=== PATIENT | male | born 1960 | race Caucasian/White ===

== ENCOUNTER 2019-11-14 12:28 | Emergency (ER) | payer SELFPAY ==
[2019-11-14 12:40] VITALS: BP 168/90; PULSE 104; RESP 16; TEMP 36.9; O2SAT 98; BMI 25.1
--- NOTE | 2019-11-14 12:55 | ED_ITS ---
HPI - Male Genitourinary General: Chief complaint: Urogenital-Male Stated complaint: genitle problems? Time Seen by Provider: 11/14/19 12:54 History of Present Illness: HPI Narrative: 59-year-old male presented to the emergency room at the direction of the local urgent care clinic. He does not have a primary care doctor he like to get seen and treated for erectile dysfunction he is mostly seeking a referral to urology. He denies any other injury or illness recently. Associated symptoms: Deny dysuria, nausea or vomiting Review of Systems Const: Denies: fever(s), chills, body aches, change in appetite, fatigue or malaise ENMT: Denies: throat pain, ear or mastoid pain, nasal discharge or nasal congestion Card: Denies: chest pain, edema, dyspnea on exertion or orthopnea Resp: Denies: dyspnea, productive cough or non-productive cough GI: Denies: abdominal pain, nausea, vomiting, hematemesis, coffee ground emesis, diarrhea, constipation, bloating, hematochezia or melena : Denies: flank pain, dysuria, urinary frequency or urinary urgency Skin/Breast: Denies: rash or pruritus Physical Exam Const: COMMON NORMALS: no acute distress GENERAL APPEARANCE: cooperative and comfortable ORIENTATION/CONSCIOUSNESS: Yes awake, Yes oriented to person, Yes oriented to place and Yes oriented to time Eye: COMMON NORMALS: Equal, round and reactive pupils present, EOMs intact bilaterally, conjunctivae normal and no scleral icterus CONJUNCTIVA: Yes conjunctivae normal PUPIL: Yes Equal, round and reactive pupils present Neck/C-Spine: COMMON NORMALS: no JVD Resp: COMMON NORMALS: normal respiratory effort, No retractions, No use of accessory muscles and clear to auscultation bilaterally AUSCULTATION: clear to auscultation bilaterally Cardio: COMMON NORMALS: no JVD, regular rate, regular rhythm and No murmurs present (Cardio) RATE: regular rate RHYTHM: regular rhythm Extremity: COMMON NORMALS: normal to inspection, capillary refill normal, no clubbing, cyanosis or edema, no calf tenderness and no pedal edema Neuro: SENSORIUM/ORIENTATION: Yes oriented to person, Yes oriented to place and Yes oriented to time Skin: COMMON NORMALS: no rashes or lesions noted GENERAL SKIN EXAM: no rashes or lesions noted Course Vital Signs: Vital signs: Vital Signs Temperature 98.4 F 11/14/19 12:40 Pulse Rate 104 H 11/14/19 12:40 Respiratory Rate 16 11/14/19 12:40 Blood Pressure 168/90 11/14/19 12:40 Pulse Oximetry 98 11/14/19 12:40 MDM - Male MDM Narrative: Medical decision making narrative: Referral made to case management for assistance in setting up the patient with a PCP and referral to urology. Advised patient to return at any time sooner if he has any problems or worsening of any particular condition. Discharge Plan Discharge Patient Disposition: Home, Self-Care Clinical Impression: Erectile dysfunction Condition: Stable Discharge Orders: Discharge Order (Routine); Ordered 11/14/19 Ordered By: Tyrell Powell Discharge Diet: Advance as tolerated Discharge Activity: Resume usual activity Activity Restrictions/Additional Instructions: Case management will call to make arrangements for you to be seen by urology and primary care doctor. Discharge Date/Time: 11/14/19 13:05 Coding Level of Care Code ED Liturgical Music Director for Edward Berkowitz
--- NOTE | 2019-11-15 09:58 | DCPLANNER ---
ultrasound manager had message to schedule a follow up appointment for patient with Dr. Tee. ultrasound manager called the office of Dr. Tee, spoke with Alyssa, gave clinic patients information. ultrasound manager was told that patients information would be printed and reviewed. Clinic will call patient with appointment information.
--- NOTE | 2019-11-15 11:45 | DCPLANNER ---
air operations manager had message to speak with patient about getting a established with a primary care physician. air operations manager called patient at phone number [phone] and was unable to speak with patient or leave a voicemail for patient.
--- NOTE | 2019-11-19 14:45 | DCPLANNER ---
Patient has a follow up appointment scheduled for Tuesday, January 10, 2020 at 11:[address] Tee. Clinic will call patient with appointment information.
--- NOTE | 2020-02-01 14:48 | DCPLANNER ---
Patient had a follow up appointment scheduled for 01.10.[address] Tee -patient did not attend the appointment.
== END 2019-11-14 13:05 | disposition home or self-care (01) ==
LOC: ER 13:20
PROVIDERS: Emergency Provider Emergency Medicine
DX: N52.9 Male erectile dysfunction, unspecified (principal)
CPT/HCPCS: 12345; 99281

== ENCOUNTER 2021-01-01 08:00 | Emergency (ER) | payer SELFPAY ==
[2021-01-01 08:14] VITALS: BP 162/86; PULSE 89; RESP 22; TEMP 36.1; O2SAT 99; BMI 25.1
--- NOTE | 2021-01-01 10:06 | XRR_ITS ---
PROCEDURE INFORMATION: Exam: XR Chest Exam date and time: 01/01/2021 10:06 AM Age: 60 years old Clinical indication: Cough and shortness of breath; Patient HX: SOB, cough x 1 week; Additional info: Evaluate for pna TECHNIQUE: Imaging protocol: XR of the chest. Views: 1 view. COMPARISON: CT Abdomen/Pelvis Renal [id number] 10/24/2016 1:36 PM FINDINGS: Lungs: Unremarkable. No consolidation. Pleural spaces: Unremarkable. No pleural effusion. No pneumothorax. Heart/Mediastinum: Unremarkable. No cardiomegaly. Bones/joints: Unremarkable. XR/XR chest 1V portable [id number] IMPRESSION: No significant abnormality.
--- NOTE | 2021-01-01 10:06 | ECG_ITS ---
[facility] Test Date: 2021-01-01 Pat Name: Austin Morrissey Department: Room: Gender: Male Fundraising Specialist: : 1960 Requested By: Phil Gloria Order Number: [id number] Reading MD: MAGDALENA MOHAMUD Measurements Intervals [place] Rate: 52 P: 58 AL: 127 QRS: 55 QRSD: 98 T: 74 QT: 397 QTc: 369 Interpretive Statements SINUS BRADYCARDIA No previous ECG available for comparison Electronically Signed On 01-01-2021 22:19:37 CDT by MAGDALENA MOHAMUD [email or web address]
[2021-01-01 10:30] LABS: SARS Covid-2 Antigen Negative (Negative)
[2021-01-01 10:32] LABS: Basophils # 0.1 10^3/uL (0.0-0.1); Basophils % 0.6 %; Eosinophils # 0.1 10^3/uL (0.0-0.8); Eosinophils % 0.8 %; Hematocrit 50.3 % (42.0-52.0); Hemoglobin 16.6 g/dL (11.7-16.6); Lymphocytes # 1.3 10^3/uL (0.8-4.8); Lymphocytes % 11.3 %; Mean Corpuscular Hemoglobin 28.5 pg (28.0-34.0); Mean Corpuscular Volume 86.4 fl (80-94); Monocytes # 0.7 10^3/uL (0.2-0.9); Monocytes % 6.3 %; Neutrophils # 9.42 10^3/uL (1.8-7.7); Neutrophils % 80.5 %; Nucleated Red Blood Cells % 0 %; Platelet Count 392 10^3/cmm (130-400); Red Blood Count 5.82 10^6/uL (4.1-5.3); Red Cell Distribution Width 12.4 % (12.1-15.1); White Blood Count 11.7 10^3/uL (4.0-10.0)
[2021-01-01 10:50] LABS: Anion Gap 10.9 (5-19); Blood Urea Nitrogen 14 mg/dL (8-23); Calcium 8.7 mg/dL (8.5-10.5); Carbon Dioxide 25 mmol/L (22-29); Chloride 106 mmol/L (98-107); Glucose 88 mg/dL (65-115); Osmolality Calculated 286 mOsm/kg (285-295); Potassium 3.9 mmol/L (3.5-5.1); Sodium 138 mmol/L (136-145)
[2021-01-01 10:51] LABS: Troponin T (5th) Once 6 ng/L (0-15)
[2021-01-01 11:10] VITALS: BP 148/88; PULSE 87; RESP 15; O2SAT 96; O2SAT 98
--- NOTE | 2021-01-01 13:30 | W.ED.GENADLT ---
HPI - General Adult General: Chief complaint: COVID symptoms Stated complaint: SOB, weak, dizzy Time Seen by Provider: 01/01/21 08:16 History of Present Illness: HPI narrative: 60-year-old male with a history of smoking who presents emergency room with cough, shortness of breath, and generalized weakness x5 days. Patient has not had a Covid test. Has had decreased appetite. Denies any fever or chills, abdominal complaints or complaints this time. Denies any exertional chest pain, exertional shortness of breath, pleuritic chest pain, history of DVT PE in the past, productive sputum, recent surgery or immobilization. Onset:5 days Duration:5 days Location:home Severity:mild Review of Systems Narrative: Constitutional: No fever, no chills. +generalized weakness, +fatigue HEENT: No vision changes CV: No chest pain, no palpitations PULM: +cough, +dyspnea. GI: No abdominal pain, no N/V/D. : No dysuria MSKEL: No muscle pain SKIN: No new rashes, no lesions. NEURO: No headache, no focal weakness. HEME: No visible bruises PSYCH: Normal mood Physical Exam Narrative: EXAM NARRATIVE: Head: Atraumatic Eyes: PERRL, conjunctiva without injection ENT: Mucous membrane moist NECK: Supple, ROM intact LUNGS: LCTAB, no crackles/rhonchi CV: RRR ABDOMEN: Soft, nontender in all quadrants EXTREMITY: Normal ROM SKIN: No rash or erythema NEURO: Awake and alert, no focal motor deficits PSYCH: Normal mood and affect Course Vital Signs: Vital signs: Vital Signs Temperature 97.0 F L 01/01/21 08:14 Pulse Rate 87 01/01/21 11:10 Respiratory Rate 15 01/01/21 11:10 Blood Pressure 148/88 01/01/21 11:10 Pulse Oximetry 98 01/01/21 11:10 MDM - General Adult MDM Narrative: Medical decision making narrative: Patient eloped prior to reassessment. Lab Data: Labs: Lab Results 01/01/21 01/01/21 01/01/21 Range/Units 09:35 10:27 10:27 WBC 11.7 H (4.0-10.0) 10^3/ uL RBC 5.82 H (4.1-5.3) 10^6/u L Hgb 16.6 (11.7-16.6) g/dL Hct 50.3 (42.0-52.0) % MCV 86.4 (80-94) fl MCH 28.5 (28.0-34.0) pg MCHC 33.0 (30.0-36.0) g/dL RDW 12.4 (12.1-15.1) % Plt Count 392 (130-400) 10^3/c mm MPV 9.0 (7.4-10.4) fL Neut % (Auto) 80.5 % Lymph % (Auto) 11.3 % Blanco % (Auto) 6.3 % Eos % (Auto) 0.8 % Baso % (Auto) 0.6 % Neut # (Auto) 9.42 H (1.8-7.7) 10^3/u L Lymph # (Auto) 1.3 (0.8-4.8) 10^3/u L Blanco # (Auto) 0.7 (0.2-0.9) 10^3/u L Eos # (Auto) 0.1 (0.0-0.8) 10^3/u L Baso # (Auto) 0.1 (0.0-0.1) 10^3/u L Nucleated RBC % (a uto) 0 % Nucleated RBCs # 0.0 /100WBC Sodium 138 (136-145) mmol/L Potassium 3.9 (3.5-5.1) mmol/L Chloride 106 (98-107) mmol/L Carbon Dioxide 25 (22-29) mmol/L Anion Gap 10.9 (5-19) BUN 14 (8-23) mg/dL Creatinine 0.6 L (0.7-1.2) mg/dL GFR Calculation 137.0 H (90-130) mL/min Glucose 88 (65-115) mg/dL Calculated Osmolal ity 286 (285-295) mOsm/k g Calcium 8.7 (8.5-10.5) mg/dL Troponin T Gen 5 n g/L (0-15) ng/L SARS-CoV-2 Ag (Rap id) Negative (Negative) 01/01/21 Range/Units 10:27 WBC (4.0-10.0) 10^3/ uL RBC (4.1-5.3) 10^6/u L Hgb (11.7-16.6) g/dL Hct (42.0-52.0) % MCV (80-94) fl MCH (28.0-34.0) pg MCHC (30.0-36.0) g/dL RDW (12.1-15.1) % Plt Count (130-400) 10^3/c mm MPV (7.4-10.4) fL Neut % (Auto) % Lymph % (Auto) % Blanco % (Auto) % Eos % (Auto) % Baso % (Auto) % Neut # (Auto) (1.8-7.7) 10^3/u L Lymph # (Auto) (0.8-4.8) 10^3/u L Blanco # (Auto) (0.2-0.9) 10^3/u L Eos # (Auto) (0.0-0.8) 10^3/u L Baso # (Auto) (0.0-0.1) 10^3/u L Nucleated RBC % (a uto) % Nucleated RBCs # /100WBC Sodium (136-145) mmol/L Potassium (3.5-5.1) mmol/L Chloride (98-107) mmol/L Carbon Dioxide (22-29) mmol/L Anion Gap (5-19) BUN (8-23) mg/dL Creatinine (0.7-1.2) mg/dL GFR Calculation (90-130) mL/min Glucose (65-115) mg/dL Calculated Osmolal ity (285-295) mOsm/k g Calcium (8.5-10.5) mg/dL Troponin T Gen 5 n g/L 6 (0-15) ng/L SARS-CoV-2 Ag (Rap id) (Negative) Imaging Data^: Other Imaging: Radiologist's impression: [address] [id number] ReportSigned Patient: Donato Morrissey #: [id number]: 1960Acct#:[id number]/Sex: 60 / MADM Date: 01/01/21Loc: ERRoom/Bed:Attending Dr: Ordering Provider/Ordering MD: Phil Gloria MD Date of Service: 01/01/21 Procedure(s): XR chest 1V portable [id number] Accession Number(s): [id number] Report Number: [id number] PROCEDURE INFORMATION: Exam: XR Chest Exam date and time: 01/01/2021 10:06 AM Age: 60 years old Clinical indication: Cough and shortness of breath; Patient HX: SOB, cough x 1 week; Additional info: Evaluate for pna TECHNIQUE: Imaging protocol: XR of the chest. Views: 1 view. COMPARISON: CT Abdomen/Pelvis Renal [id number] 10/24/2016 1:36 PM FINDINGS: Lungs: Unremarkable. No consolidation. Pleural spaces: Unremarkable. No pleural effusion. No pneumothorax. Heart/Mediastinum: Unremarkable. No cardiomegaly. Bones/joints: Unremarkable. XR/XR chest 1V portable [id number] IMPRESSION: No significant abnormality. Dictated By:Vivek Diaz By:Vivek Diaz Date/Time:01/01/21 1129DD/ 1128 Discharge Plan Discharge Patient Disposition: Left Against Medical Advice Referrals: Rajendra Tee MD [Primary Care Provider] - Coding Level of Care Code ED Drafter Chief Design for Edward Berkowitz
[2021-01-02 14:55] LABS: Coronavirus Test Green County Detected
--- NOTE | 2021-01-02 17:53 | PC.NURSE ---
unable to reach pt to give positive covid results. letter will be sent.
== END 2021-01-01 13:44 | disposition left against medical advice (07) ==
PROVIDERS: Emergency Provider Emergency Medicine; PCP Urology
DX: U07.1 COVID-19 (principal); Z53.21 Procedure and treatment not carried out due to patient leaving prior to being seen by health care provider
CPT/HCPCS: 36415; 71045; 80048; 84484; 85025; 87426; 87635; 93005; 99283

== ENCOUNTER 2023-03-23 08:55 | Day surgery (SDC) | payer OTHER, SELFPAY ==
[2023-03-23] VITALS (13 sets, daily range): BP systolic 124–161; BP diastolic 66–91; PULSE 72–83; RESP 12–20; TEMP 36.2–36.8; O2SAT 94–100
--- NOTE | 2023-03-23 08:12 | P.HP_ITS ---
Same Day Surgery H&P Indication for Procedure/HPI DATE OF PROCEDURE: March 23, 2023 CHIEF COMPLAINT/INDICATIONFOR SURGICAL PROCEDURE: left inguinal hernia PREOP DIAGNOSIS: left inguinal hernia PLANNED PROCEDURE: Operation Date: 03/23/23 10:10 Proposed Procedures p 49621 lap possible open left inguinal hernia repair with mesh K46.9(Left) - Jasen Mcfarlane MD Medications/Allergies* Home Medications Medication Instructions Recorded Confirmed Type No Known Home Medications 01/25/23 02/07/23 History Allergies/Adverse Reactions Allergy/AdvReac Type Severity Reaction Status Date / Time No Known Allergies Allergy Verified 03/22/23 14:27 Pertinent History/Comorbid Conditions* Family History (Updated 02/07/23 @ 09:04 by CARMINE Lake) Denies family history of Anesthesia complication Social History Smoking and tobacco/nicotine status: current every day tobacco/nicotine user Alcohol intake: never Pertinent Exam Findings alert, oriented x 3, clear to auscultation bilaterally, regular rate & rhythm an d operative site marked Recommendations Surgery/Procedure today Coding Level of Care Code Acute Code for Chg Fwd Diagnoses
[2023-03-23] MEDS: sodium chloride 0.9% 1,000 ML 30 ML IV (09:16)
--- NOTE | 2023-03-23 10:32 | ANES.PREANE2 ---
Pre-Anesthetic Assessment Height/Weight: Height 1.75 m Weight 170 g Temp Pulse Resp BP Pulse Ox O2 Del Method 97.8 F 83 18 161/91 100 Room Air 03/23/23 09:08 03/23/23 09:08 03/23/23 09:08 03/23/23 09:08 03/23/23 09:08 03/23/23 09:08 Preop Diagnosis: left inguinal hernia Operation Date: 03/23/23 10:10 Proposed Procedures p 33240 lap possible open left inguinal hernia repair with mesh K46.9(Left) - Jasen Mcfarlane MD Familial anesthetic complications: None Was Beta Michaela taken within 24 hours: N/A Was Clonidine taken within 24 hours: N/A Last intake: Intake Last Liquid Date 03/22/23 Last Liquid Time 00:00 Last Solid Date 03/22/23 Last Solid Time 00:00 Social No alcohol and No tobacco Exam alert, oriented x 3, clear to auscultation bilaterally and regular rate & rhythm Airway Mallampati: Class II Dentition: false Anesthetic Plan ASA status: 1 Anesthesia: General Risk of > 500 ml blood loss (7ml/kg in children): No Medications/Allergies Home Medications Medication Instructions Recorded Confirmed Last Taken Type No Known Home Medications 01/25/23 03/23/23 Unknown History Allergies Allergy/AdvReac Type Severity Reaction Status Date / Time No Known Allergies Allergy Verified 03/22/23 14:27 Current Medications Generic Name Dose Route Start Last Admin Trade Name Freq PRN Reason Stop Dose Admin Sodium Chloride 1,000 mls @ 30 mls/hr 03/23/23 09:00 03/23/23 09:16 Sodium Chloride 0.9% IV 03/24/23 08:59 30 mls/hr .Q24H TRACY Administration PFSH Anesthesia Family History (Updated 02/07/23 @ 09:04 by CARMINE Lake) Denies family history of Anesthesia complication Social History (Updated 02/07/23 @ 09:03 by CARMINE Lake) Smoking and tobacco/nicotine status: current every day tobacco/nicotine user Alcohol intake: never Data Anesthesia Cardiac Studies: No Data to Display
[2023-03-23] MEDS: ceFAZolin 2,000 MG in sodium chloride 0.9% (plus) 50 ML 100 MG IV (11:54)
[2023-03-23] MEDS: BUPivacaine 0.25% INJ 10 mL INJECTION (13:36)
[2023-03-23] MEDS: lidocaine-epi 1% 20 mL INJ INJECTION (13:50)
--- NOTE | 2023-03-23 14:40 | PM.OP ---
Operative Report Date of procedure: March 23, 2023 Pre-op diagnosis: Incarcerated left inguinal hernia Post-op diagnosis: Same Procedure done: Laparoscopic, converted to open left inguinal hernia repair with mesh. Implants: Bard Prolene mesh Surgeon: Jasen Mcfarlane MD Mechanic General Operational Test: SHAISTA OR STaff Estimated blood loss: 10cc Complications: none Findings: Large incarcerated left inguinal hernia, with chronic scar tissue formation between the sac or structures on the right structures of the groin. During attempted laparoscopic up attempt, there was evidence of a previous right-sided repair, mesh had incorporated into the peritoneum causing a tear of the peritoneum with access. Brief History: 62-year-old male with history of right inguinal hernia repair who presented for a left inguinal hernia that has been chronically incarcerated. After discussion of risk and benefits as documented in my preop note we decided to proceed with laparoscopic possible open repair. Procedure: Patient was brought into the OR. Placed in the supine position. The abdomen was prepped and draped in the usual sterile fashion. Timeout was conducted. An infra umbilical incision was made, the anterior rectus sheath was then identified and sharply opened, the rectus muscle was retracted lateral accessing the retrorectus space. A Spacemaker was placed in the created the space and was opened under direct visualization. The Spacemaker was then removed and replaced with a 12 mm trocar. Upon replacement of the trocar and initial laparoscopy it was noted that on the right groin at the area of previous hernia repair and the mesh had incorporated into the peritoneum causing it to tear at the moment of balloon inflation. I attempted to acquire pneumoperitoneum with a Veress needle, but working space was insufficient and therefore I decided to convert to an open procedure. While pneumoperitoneum was first evacuated through the Veress needle and the opening of the anterior rectus sheath was closed with #0 Vicryl. The wound was closed with #4-0 Monocryl. I then placed my attention to the left groin, a sick centimeter incision was made, the incision was deepened until the external oblique aponeurosis was identified. The external bleak aponeurosis was then opened and from the level of the external ring to the area overlying the internal inguinal ring. Careful blunt dissection was used to encircle the cord structures and hernia sac and a [place] drain was used to elevate the cord. At this moment we evaluated for direct component at the level of the floor. The floor noted to be extremely weak, the transversalis fascia was loose and preperitoneal fat could be clearly appreciated. I then proceeded to dissect the cord structures from the hernia sac and the lipoma of the cord. The dissection was very difficult due to intense chronic inflammatory reaction producing a fusion of the sac to the cord structures and ilioinguinal nerve at the level of the cord. Careful dissection was achieved and the hernia sac and lipoma of the cord were reduced into the preperitoneal space. I sharply transected the ilioinguinal nerve due to severe scar tissue formation between the nerve and the hernia sac preventing its careful dissection. Once the hernia was reduced, it was apparent that the floor of the canal needed to be plicated. I proved seated with plication of the floor of the canal using #2-0 Prolene under direct visualization, I did this by approximating the transversalis muscle and conjoined tendon to the inguinal ligament. I then proceeded to place a mesh on the newly reconstructed floor of the inguinal canal, the mesh was fixed With #2-0 Prolene medially to the pubic tubercle, inferiorly to the shelving edge of the inguinal ligament, superior to the conjoined tendon and on the lateral direction the tails were joined together to recreate the internal ring. After the mesh was placed the cord structures were returned to the anatomic position. Hemostasis was verified, local anesthesia was administered at the level of the fascia and on the pad of the nerves. I then proceeded to close the external oblique using 2-0 Vicryl. The wound was then closed in layers using #2-0 Vicryl to Taylor's fascia and subcutaneous tissue and #4-0 Monocryl for the skin. Dermabond was applied on all the wounds. At the end of the procedure all counts were correct, the patient tolerated well the procedure and was transferred to the PACU in a stable condition. I did verify the contents of the scrotum before leaving the OR, noting normal testicular anatomy and no evidence of hernia.
--- NOTE | 2023-03-23 16:30 | ANE.PACU2 ---
Inpatient post-anesthesia follow up: Airway intact: Yes Vital signs: Temperature 98.3 F Pulse Rate 77 Respiratory Rate 16 Blood Pressure 137/77 Pulse Oximetry 95 Oxygen Delivery Me thod Room Air Oxygen Flow Rate 6 Fraction of Inspir ed Oxygen Hydration adequate: Yes Nausea and vomiting: No Pain level: 1 Mental status: Baseline
== END 2023-03-23 16:30 | disposition home or self-care (01) ==
PROVIDERS: PCP Surgery; Visit Provider Surgery
PROC: (CPT 49507; 2023-03-23 10:00)
DX: K40.30 Unilateral inguinal hernia, with obstruction, without gangrene, not specified as recurrent (principal); Z53.31 Laparoscopic surgical procedure converted to open procedure; F17.200 Nicotine dependence, unspecified, uncomplicated
CPT/HCPCS: 49507; 51702; C1781; J0131; J0690; J1100; J2371; J2405; J2704; J2710; J3010; J3490; J7030

== ENCOUNTER 2024-04-06 10:12 | Emergency (ER) | payer OTHER, SELFPAY ==
[2024-04-06] VITALS (8 sets, daily range): BP systolic 130–193; BP diastolic 59–128; PULSE 52–98; RESP 14–18; TEMP 36.9; O2SAT 96–99; BMI 26.6
--- NOTE | 2024-04-06 10:43 | ECG_ITS ---
[facility] Pat Name: Austin Morrissey Department: Room: Gender: Male Check Processor: : 1960 Requested By: Tyrell Pérez Order Number: [id number] Gracie MD: Jose Shaver M.D. Measurements Intervals [place] Rate: 79 P: 54 ID: [id number] QRS: 51 QRSD: 82 T: 70 QT: 346 QTc: 397 Interpretive Statements SINUS RHYTHM Compared to ECG 01/01/2021 10:32:33 Sinus bradycardia no longer present Electronically Signed On 04-08-2024 18:53:51 METAL OFF BEARER by Jose Shaver M.D. [id number]
--- NOTE | 2024-04-06 10:43 | CTR_ITS ---
PROCEDURE INFORMATION: Exam: CT Head Without Contrast Exam date and time: 04/06/2024 10:58 AM Age: 63 years old Clinical indication: Other: Sudden onset tremor TECHNIQUE: Imaging protocol: Computed tomography of the head without contrast. Radiation optimization: All CT scans at this facility use at least one of these dose optimization techniques: automated exposure control; mA and/or kV adjustment per patient size (includes targeted exams where dose is matched to clinical indication); or iterative reconstruction. COMPARISON: No relevant prior studies available. RADIATION DOSE METRICS: Total DLP (mGy-cm): 1061.88 FINDINGS: Brain: Mild nonspecific white matter low attenuation which may be related to microvascular ischemic changes. No acute confluent lobar ischemic infarct. No acute intracranial hemorrhage. Left basal ganglia lacune versus prominent perivascular space. Cerebral ventricles: The ventricles and sulci are normal in size and shape for the patient's stated age. Paranasal sinuses: No fluid levels. Mastoid air cells: Visualized mastoid air cells are well aerated. Bones: No acute calvarial fracture. Soft tissues: Visualized soft tissues are unremarkable. CT/CT head wo con* [id number] IMPRESSION: No acute intracranial abnormality. If symptoms persist, consider further evaluation with MRI, if MRI is clinically safe to obtain.
--- NOTE | 2024-04-06 10:51 | ED_ITS ---
HPI - General Adult 2 General: Chief complaint: General Medical Stated complaint: uncontrollable shaking Time Seen by Provider: 04/06/24 10:43 History of Present Illness: 63-year-old male presents emergency room complaining of tremor primarily in his left arm. He denies any headache vision changes swallowing difficulty. No difficulty with vision no ataxia. No chest pain or abdominal pain. Associated symptoms: Deny chest pain, dyspnea or rash Related Data Home Medications Medication Instructions Recorded Confirmed lisinopril 20 mg tablet 20 mg PO DAILY 04/06/24 04/06/24 Previous Rx's Medication Instructions Recorded lorazepam 2 mg tablet (Ativan) 2 mg PO Q8H PRN anxiety #14 tabs 04/06/24 Allergies Allergy/AdvReac Type Severity Reaction Status Date / Time No Known Allergies Allergy Verified 04/04/23 08:23 Review of Systems 2 Const: Denies: fever(s) or chills Card: Denies: chest pain Resp: Denies: dyspnea GI: Denies: abdominal pain : Denies: dysuria, urinary frequency or urinary urgency Musc: Denies: neck pain or back pain Skin/Breast: Denies: rash Psych: Reports: anxiety PFSH ED 2 PFSH: Surgical History History of left inguinal hernia repair 03/23/23 lap converted to open left inguinal hernia repair with mesh- Dr Mcfarlane Family History Denies family history of Anesthesia complication Social History Smoking and tobacco/nicotine status: current every day tobacco/nicotine user Alcohol intake: never Physical Exam 2 Const: GENERAL APPEARANCE: cooperative ORIENTATION/CONSCIOUSNESS: Yes awake, Yes oriented to person, Yes oriented to place and Yes oriented to time HENMT: COMMON NORMALS: normocephalic, atraumatic and hearing grossly normal bilaterally HEAD & SCALP: normocephalic and atraumatic Resp: COMMON NORMALS: normal respiratory effort, No retractions, No use of accessory muscles and clear to auscultation bilaterally AUSCULTATION: clear to auscultation bilaterally Cardio: COMMON NORMALS: regular rate, regular rhythm and No murmurs present (Cardio) RATE: regular rate RHYTHM: regular rhythm GI: COMMON NORMALS: Soft to palpation and No hepatosplenomegaly present A USCULTATION: Yes normoactive bowel sounds PALPATION: Yes Soft to palpation, No Tenderness to palpation present (GI), No Guarding due to palpation present (GI) and Yes No hepatosplenomegaly present Extremity: COMMON NORMALS: normal to inspection, capillary refill normal, no clubbing, cyanosis or edema, no calf tenderness and no pedal edema Neuro: SENSORIUM/ORIENTATION: Yes oriented to person, Yes oriented to place and Yes oriented to time Skin: COMMON NORMALS: no rashes or lesions noted GENERAL SKIN EXAM: no rashes or lesions noted Course 2 Vital Signs: Vital signs: Vital Signs Temperature 98.4 F 04/06/24 10:36 Pulse Rate 86 04/06/24 14:57 Respiratory Rate 16 04/06/24 14:57 Blood Pressure 162/92 04/06/24 14:57 Pulse Oximetry 99 04/06/24 14:57 Oxygen Delivery Me thod Room Air 04/06/24 13:00 MDM - General Adult Medical Decision Making Patient's symptoms all resolved with Ativan he is having no further tremor. Believe this is more of a functional episode CT of his head was negative. Will discharge patient home with Ativan to use as needed. Follow-up with his primary care physician Medical Records I reviewed the patient's medical records. Lab Data I reviewed the patient's lab results. 04/06/24 10:56 04/06/24 10:[address] 04/06/24 10:43 IMPRESSION: No acute intracranial abnormality. If symptoms persist, consider further evaluation with MRI, if MRI is clinically safe to obtain. Laboratory Results WBC 8.81 10^3/uL (3.29-11.43) 04/06/24 10:56 RBC 5.60 10^6/uL (3.85-5.65) 04/06/24 10:56 Hgb 16.30 g/dL (11.27-16.99) 04/06/24 10:56 Hct 49.9 % (37-53) 04/06/24 10:56 MCV 89.1 fl (82-101) 04/06/24 10:56 MCH 29.1 pg (27-33) 04/06/24 10:56 MCHC 32.7 g/dL (30-55) 04/06/24 10:56 RDW 12.6 % (12.1-15.1) 04/06/24 10:56 Plt Count 293 10^3/cmm (157-399) 04/06/24 10:56 MPV 8.9 fL (7.4-10.4) 04/06/24 10:56 Neut % (Auto) 66.4 % 04/06/24 10:56 Lymph % (Auto) 23.8 % 04/06/24 10:56 [place]o % (Auto) 6.6 % 04/06/24 10:56 Eos % (Auto) 1.9 % 04/06/24 10:56 Baso % (Auto) 0.7 % 04/06/24 10:56 Neut # (Auto) 5.85 10^3/uL (1.8-7.7) 04/06/24 10:56 Lymph # (Auto) 2.1 10^3/uL (0.8-4.8) 04/06/24 10:56 Arroyo # (Auto) 0.6 10^3/uL (0.2-0.9) 04/06/24 10:56 Eos # (Auto) 0.2 10^3/uL (0.0-0.8) 04/06/24 10:56 Baso # (Auto) 0.1 10^3/uL (0.0-0.1) 04/06/24 10:56 Nucleated RBC % (auto) 0 % 04/06/24 10:56 Nucleated RBCs # 0.0 /100WBC 04/06/24 10:56 Sodium 139 mmol/L (136-145) 04/06/24 10:56 Potassium 4.6 mmol/L (3.5-5.1) 04/06/24 10:56 Chloride 103 mmol/L (98-107) 04/06/24 10:56 Carbon Dioxide 25 mmol/L (22-29) 04/06/24 10:56 Anion Gap 15.6 (5-19) 04/06/24 10:56 BUN 23 mg/dL (8-23) 04/06/24 10:56 Creatinine 0.8 mg/dL (0.7-1.2) 04/06/24 10:56 GFR Calculation 97.3 mL/min (90-130) 04/06/24 10:56 Glucose 82 mg/dL (65-115) 04/06/24 10:56 Calculated Osmolality 291 mOsm/kg (285-295) 04/06/24 10:56 Lactic Acid 1.8 mmol/L (0.5-2.2) 04/06/24 10:56 Calcium 9.1 mg/dL (8.5-10.5) 04/06/24 10:56 Total Bilirubin 0.4 mg/dL (0.15-1.2) 04/06/24 10:56 AST 12 U/L (0-40) 04/06/24 10:56 ALT 14 U/L (0-41) 04/06/24 10:56 Alkaline Phosphatase 81 U/L (40-130) 04/06/24 10:56 Creatine Kinase 92 U/L (39-308) 04/06/24 10:56 Total Protein 6.9 g/dL (6.6-8.7) 04/06/24 10:56 Albumin 4.2 g/dL (3.5-5.2) 04/06/24 10:56 Globulin 2.7 g/dL (1.3-4.6) 04/06/24 10:56 Urine Color Yellow (Yellow) 04/06/24 13:20 Urine Appearance Clear (CLEAR) 04/06/24 13:20 Urine pH 7.0 (5-7) 04/06/24 13:20 Ur Specific [place] 1.013 (1.005-1.030) 04/06/24 13:20 Urine Protein Negative (Negative) 04/06/24 13:20 Urine Glucose (UA) Negative (Normal) 04/06/24 13:20 Urine Ketones Negative (Negative) 04/06/24 13:20 Urine Blood Negative (Negative) 04/06/24 13:20 Urine Nitrate Negative (Negative) 04/06/24 13:20 Urine Bilirubin Negative (Negative) 04/06/24 13:20 Urine Urobilinogen 0.2 mg/dL (Negative) 04/06/24 13:20 Ur Leukocyte Esterase Negative (Negative) 04/06/24 13:20 Urine RBC 0-2 /hpf (0-2) 04/06/24 13:20 Urine WBC 0-5 /hpf (0-5) 04/06/24 13:20 Ur Squamous Epith Cells 0-5 /hpf (0-5) 04/06/24 13:20 Amorphous Sediment Not Reportable 04/06/24 13:20 Urine Bacteria None seen /hpf (NONE) 04/06/24 13:20 Hyaline Casts 0-4 /lpf H 04/06/24 13:20 Urine Opiates Screen Negative ng/mL (Negative) 04/06/24 13:20 Ur Barbiturates Screen Negative ng/mL (Negative) 04/06/24 13:20 Ur Phencyclidine Scrn Negative ng/mL (Negative) 04/06/24 13:20 Ur Amphetamines Screen Negative ng/mL (Negative) 04/06/24 13:20 U Benzodiazepines Scrn Positive ng/mL (Negative) H 04/06/24 13:20 Urine Cocaine Screen Negative ng/mL (Negative) 04/06/24 13:20 U Marijuana (THC) Screen Negative ng/mL (Negative) 04/06/24 13:20 All radiology interpretation(s) finalized by discharge Discharge Plan Discharge Patient Disposition: Home Clinical Impression: Functional neurological symptom disorder with abnormal movement Condition: Stable Prescriptions: New lorazepam [Ativan] 2 mg tablet 2 mg PO Q8H PRN (Reason: anxiety) Qty: 14 0RF No Action lisinopril 20 mg tablet 20 mg PO DAILY Discharge Orders: Discharge ED (Routine); Ordered 04/06/24 Ordered By: Tyrell Powell Referrals: Jasen Mcfarlane MD [Primary Care Provider] - Discharge Diet: Usual diet Discharge Activity: Increase activity as tolerated Patient Instructions: Conversion Disorder (ED), Opioid Safety, Pain Management Activity Restrictions/Additional Instructions: Thank you for choosing [facility] for your healthcare needs today. It is very important that you follow up as instructed or that you return to the Emergency Department should you have concerns or if your condition changes or worsens in any way. You were seen in the emergency room with a tremor. CT of your head and your laboratory tests were normal. Your tremor improved with Ativan. This appears to be conversion disorder. Follow-up with your primary care doctor within the next week if your symptoms persist Coding Level of Care Code ED Application Support Manager for Edward Berkowitz
[2024-04-06 11:01] LABS: Basophils # 0.1 10^3/uL (0.0-0.1); Basophils % 0.7 %; Eosinophils # 0.2 10^3/uL (0.0-0.8); Eosinophils % 1.9 %; Hematocrit 49.9 % (37-53); Lymphocytes # 2.1 10^3/uL (0.8-4.8); Lymphocytes % 23.8 %; Mean Corpuscular HGB Conc 32.7 g/dL (30-55); Mean Corpuscular Hemoglobin 29.1 pg (27-33); Mean Corpuscular Volume 89.1 fl (82-101); Mean Platelet Volume 8.9 fL (7.4-10.4); Monocytes # 0.6 10^3/uL (0.2-0.9); Monocytes % 6.6 %; Neutrophils # 5.85 10^3/uL (1.8-7.7); Neutrophils % 66.4 %; Nucleated Red Blood Cells % 0 %; Platelet Count 293 10^3/cmm (157-399); Red Cell Distribution Width 12.6 % (12.1-15.1); White Blood Count 8.81 10^3/uL (3.29-11.43)
[2024-04-06 11:18] LABS: Lactic Sepsis W/Reflex 1.8 mmol/L (0.5-2.2)
[2024-04-06 11:19] LABS: Alanine Aminotransferase 14 U/L (0-41); Albumin Level 4.2 g/dL (3.5-5.2); Alkaline Phosphatase 81 U/L (40-130); Anion Gap 15.6 (5-19); Aspartate Amino Transferase 12 U/L (0-40); Blood Urea Nitrogen 23 mg/dL (8-23); Calcium 9.1 mg/dL (8.5-10.5); Carbon Dioxide 25 mmol/L (22-29); Chloride 103 mmol/L (98-107); Creatine Phosphokinase 92 U/L (39-308); Creatinine Clr Calc Pharmacy 99.0623; Globulin 2.7 g/dL (1.3-4.6); Glomerular Filtration Rate 97.3 mL/min (90-130); Glucose 82 mg/dL (65-115); Osmolality Calculated 291 mOsm/kg (285-295); Potassium 4.6 mmol/L (3.5-5.1); Sodium 139 mmol/L (136-145); Total Bilirubin 0.4 mg/dL (0.15-1.2); Total Protein 6.9 g/dL (6.6-8.7)
[2024-04-06] MEDS: LORazepam 2 mg/mL INJ 1 mL IVP (11:30)
[2024-04-06 13:54] LABS: Bilirubin Urine Negative (Negative); Blood Urine Negative (Negative); Glucose Urine UA Negative (Normal); Ketones Urine Negative (Negative); Leukocyte Esterase Urine Negative (Negative); Nitrate Urine Negative (Negative); Protein Urine Negative (Negative); Specific Gravity, Urine 1.013 (1.005-1.030); Urine Appearance Clear (CLEAR); Urine Color Yellow (Yellow); Urobilinogen Urine 0.2 mg/dL (Negative)
[2024-04-06 13:56] LABS: Add Urine Microscopic? YES; Bacteria Urine None Seen /hpf; Hyaline Casts Urine 0-4 /lpf; RBC Urine 0-2 /hpf (0-2); Squamous Epithelial Cell Urine 0-5 /hpf (0-5); WBC Urine 0-5 /hpf (0-5)
[2024-04-06 14:00] LABS: Amphetamines Screen Urine Negative (Negative); Barbiturates Screen Urine Negative (Negative); Benzodiazepines Screen Urine Positive (Negative); Cocaine Screen Urine Negative (Negative); Opiate Screen Urine Negative (Negative); PCP Screen Urine Negative (Negative); THC Screen Urine Negative (Negative)
== END 2024-04-06 15:05 | disposition home or self-care (01) ==
PROVIDERS: Emergency Provider Family Medicine; PCP Surgery
DX: R29.818 Other symptoms and signs involving the nervous system (principal); Z72.0 Tobacco use
CPT/HCPCS: 36415; 70450; 80053; 80306; 81001; 82550; 83605; 85025; 93005; 96374; 99285; J2060

== ENCOUNTER 2024-04-08 09:35 | Emergency (ER) | payer OTHER, SELFPAY ==
[2024-04-08 09:36] VITALS: BP 160/83; PULSE 87; RESP 18; TEMP 37; O2SAT 98; BMI 25.1
--- NOTE | 2024-04-08 10:19 | XRR_ITS ---
PROCEDURE INFORMATION: Exam: XR Chest Exam date and time: 04/08/2024 10:33 AM Age: 63 years old Clinical indication: Pain; Shortness of breath; Chest pressure; Additional info: Chest discomfort and shortness of breath TECHNIQUE: Imaging protocol: Radiologic exam of the chest. Views: 1 view. COMPARISON: CR XR chest 1V portable [id number] 01/01/2021 10:10 AM FINDINGS: Lungs: Unremarkable. No consolidation. Pleural spaces: Unremarkable. No pleural effusion. No pneumothorax. Heart/Mediastinum: Unremarkable. No cardiomegaly. Bones/joints: Unremarkable. XR/XR chest 1V portable [id number] IMPRESSION: No acute findings.
[2024-04-08 10:28] LABS: Basophils # 0.1 10^3/uL (0.0-0.1); Basophils % 0.8 %; Eosinophils # 0.2 10^3/uL (0.0-0.8); Eosinophils % 2.2 %; Lymphocytes % 28.5 %; Mean Corpuscular HGB Conc 32.7 g/dL (30-55); Mean Corpuscular Hemoglobin 29.2 pg (27-33); Mean Corpuscular Volume 89.2 fl (82-101); Mean Platelet Volume 9.2 fL (7.4-10.4); Monocytes # 0.4 10^3/uL (0.2-0.9); Monocytes % 6.1 %; Neutrophils # 4.43 10^3/uL (1.8-7.7); Neutrophils % 61.8 %; Nucleated Red Blood Cells % 0 %; Platelet Count 290 10^3/cmm (157-399); Red Blood Count 5.72 10^6/uL (3.85-5.65); Red Cell Distribution Width 12.6 % (12.1-15.1); White Blood Count 7.17 10^3/uL (3.29-11.43)
--- NOTE | 2024-04-08 10:33 | W.ED.CHESTPA ---
HPI - Chest Pain General: Chief Complaint: Chest Pain Stated Complaint: CHEST PAIN Time Seen by Provider: 04/08/24 10:18 History of Present Illness: 63-year-old male presents to the emergency department from [facility] rehab. 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 He went into rehab 3 weeks ago and has been clean for that same amount of time. Patient has a history of tobacco smoking but is currently on nicotine replacement therapy while he is in rehab. He presents to the emergency department today reporting that his left chest was sore starting around 8:30 AM. He noticed it a little over an hour after waking up. He was in the emergency department yesterday with tremors. He states the tremor started about 1 week ago. They are mostly in his left arm although they are also in his jaw and right arm. He did not notice the tremors until about a week or 2 after he stopped using methamphetamine. He is not withdrawing from any alcohol. The tremors tend to get worse by the end of the day. They do not stop when he is intentionally doing an activity such as trying to write grab things or pulling at things. In fact, they get slightly worse. He was seen for this yesterday. Patient is currently on Ativan 2 mg every 8 hours as needed for the tremors. Yesterday he received some Ativan in the emergency department and this did help with his tremors. Patient does not feel like he is anxious or nervous. He has no known history of any motor neuron disorder or stroke. Today his chest feels like it is sore from all the tremors that he was having. He feels like it is musculoskeletal in origin and he is sore in his chest when you push on it. Currently, the muscle has relaxed and he is not endorsing any discomfort. In fact, patient was asleep when I entered the room. His EKG on arrival appeared concerning but upon further investigation he was having significant tremors at the time. His prehospital EKG x 2 was a sinus rhythm without any concerning ST or T wave changes. In the room his telemetry leads are sinus rhythm. He is not experiencing any dizziness, lightheadedness, presyncope, hemoptysis, shortness of breath, diaphoresis, nausea, or any other symptoms. Patient has been refusing his lisinopril 20 mg daily because he feels like it might be causing his tremors. He does not have any other blood pressure medication. As a result, his blood pressure has been ranging in the 150s and 160s. Associated symptoms: Deny abdominal pain, dyspnea, fever(s), nausea, syncope or vomiting Related Data Previous Rx's Medication Instructions Recorded lorazepam 2 mg tablet (Ativan) 2 mg PO Q8H PRN anxiety #14 tabs 04/06/24 amlodipine 5 mg tablet 5 mg PO .daily prn PRN PRN SBP>140 04/08/24 or DBP >90 despite propranolol 30 days #30 tabs propranolol 60 mg capsule,24 60 mg PO DAILY #30 caps 04/08/24 hr,extended release Allergies Allergy/AdvReac Type Severity Reaction Status Date / Time No Known Allergies Allergy Verified 04/04/23 08:23 Review of Systems General: Reports: 10 or more systems reviewed and unremarkable except in HPI and below Const: Denies: fever(s), chills or body aches Eyes: Denies: change in vision ENMT: Denies: throat pain Card: Denies: edema or syncope Resp: Denies: dyspnea or productive cough GI: Denies: abdominal pain, nausea, vomiting or diarrhea : Denies: flank pain, dysuria or urinary frequency Musc: Denies: neck pain, back pain, extremity pain or extremity swelling Skin/Breast: Denies: rash or erythema Neuro: Denies: headache(s), numbness in extremities, weakness in extremities, lack of coordination or difficulty walking PFSH ED PFSH: Surgical History History of left inguinal hernia repair 03/23/23 lap converted to open left inguinal hernia repair with mesh- Dr Mcfarlane Family History Denies family history of Anesthesia complication Social History Smoking and tobacco/nicotine status: current every day tobacco/nicotine user Alcohol intake: never Physical Exam Narrative: EXAM NARRATIVE: Patient asleep when I entered the room. Other notable physical exam features include chest tenderness, particularly in the left pectoralis region. Patient does have a tremor when I began talking to him. It is not present when he is asleep. I noticed the tremor mostly in the left hand followed by the left upper extremity. There is a tremor to a lesser degree in the chin and right hand. When I asked him to do something with intention, it gets slightly worse. The muscle tone is normal and there is no cogwheel rigidity. The lower extremities are unaffected. Const: COMMON NORMALS: no limitations and well nourished EXAM LIMITATIONS: no altered mental status HENMT: COMMON NORMALS: normocephalic, atraumatic and external ears normal HEAD & SCALP: normocephalic and atraumatic EXTERNAL EAR: Yes external ears normal MOUTH: no muffled voice Eye: COMMON NORMALS: conjunctivae normal and no scleral icterus CONJUNCTIVA: Yes conjunctivae normal Neck/C-Spine: COMMON NORMALS: no JVD GENERAL: Yes normal visual inspection and Yes trachea midline Resp: COMMON NORMALS: normal respiratory effort, No use of accessory muscles and clear to auscultation bilaterally AUSCULTATION: clear to auscultation bilaterally Cardio: COMMON NORMALS: no JVD, regular rate and regular rhythm RATE: regular rate RHYTHM: regular rhythm GI: COMMON NORMALS: Soft to palpation and non-tender PALPATION: Yes Soft to palpation and No Guarding due to palpation present (GI) Extremity: COMMON NORMALS: normal to inspection Neuro: COMMON NORMALS: moves all extremities, no focal motor deficits and no sensory deficits noted SPEECH: speech normal Psych: COMMON NORMALS: mental status grossly normal, Normal thought process present, cooperative, normal affect and speech normal SPEECH: Yes normal speech THOUGHT PROCESS: Normal thought process present Skin: COMMON NORMALS: no rashes or lesions noted, turgor normal and no jaundice GENERAL SKIN EXAM: no rashes or lesions noted and turgor normal Course ED course: I have reviewed the patient's laboratory workup, EKG, vitals, chest x-ray. Troponin reassuring. Pretest probability low for ACS. No other concerning findings on laboratory workup. EKG reassuring. Chest x-ray no acute findings. Case management has been consulted for referral to neurology to follow-up for tremors. Patient refuses to take lisinopril; this was replaced with propranolol. Amlodipine 5 mg was added as a daily as needed medication if he continues to have high blood pressure greater than 140/90. Patient encouraged to follow-up with PCP. Patient stable for discharge. Vital Signs: Vital signs: Vital Signs Temperature 98.6 F 04/08/24 09:36 Pulse Rate 64 04/08/24 10:43 Respiratory Rate 18 04/08/24 09:36 Blood Pressure 163/73 04/08/24 10:43 Pulse Oximetry 98 04/08/24 10:43 Oxygen Delivery Me thod Room Air 04/08/24 09:36 MDM - Chest Pain Medical Decision Making 63-year-old male presents to the emergency department from [facility]. 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 He went into rehab 3 weeks ago and has been clean for that same amount of time. Patient has a history of tobacco smoking but is currently on nicotine replacement therapy while he is in rehab. He presents to the emergency department today reporting that his left chest was sore starting around 8:30 AM. He noticed it a little over an hour after waking up. He was in the emergency department yesterday with tremors. He states the tremor started about 1 week ago. They are mostly in his left arm although they are also in his jaw and right arm. He did not notice the tremors until about a week or 2 after he stopped using methamphetamine. He is not withdrawing from any alcohol. The tremors tend to get worse by the end of the day. They do not stop when he is intentionally doing an activity such as trying to write grab things or pulling at things. In fact, they get slightly worse. He was seen for this yesterday. Patient is currently on Ativan 2 mg every 8 hours as needed for the tremors. Yesterday he received some Ativan in the emergency department and this did help with his tremors. Patient does not feel like he is anxious or nervous. He has no known history of any motor neuron disorder or stroke. Today his chest feels like it is sore from all the tremors that he was having. He feels like it is musculoskeletal in origin and he is sore in his chest when you push on it. Currently, the muscle has relaxed and he is not endorsing any discomfort. In fact, patient was asleep when I entered the room. His EKG on arrival appeared concerning but upon further investigation he was having significant tremors at the time. His prehospital EKG x 2 was a sinus rhythm without any concerning ST or T wave changes. In the room his telemetry leads are sinus rhythm. He is not experiencing any dizziness, lightheadedness, presyncope, hemoptysis, shortness of breath, diaphoresis, nausea, or any other symptoms. Patient has been refusing his lisinopril 20 mg daily because he feels like it might be causing his tremors. He does not have any other blood pressure medication. As a result, his blood pressure has been ranging in the 150s and 160s. 1. Hypertension: We will initiate propranolol which should help his blood pressure and his tremors, assuming they are essential tremors. This is not a hypertensive emergency 2. Atypical chest pain: Reproducible in the chest wall and the patient has a reason to be sore since he is been having so many tremors. Will run a troponin as a precaution and get a chest x-ray as well as electrolytes and CMP. I expect these will be normal. EKG obtained on arrival at 9:43 AM has significant baseline interference due to the tremors. However when you look closely, this appears to be a sinus rhythm with somewhat delayed R wave progression through the precordium. Prehospital EKGs obtained at 01/25/2013 and 01/27/1948 were also reviewed. They show a sinus rhythm, rate in the 80s, normal axis, narrow QRS, and no concerning ST segment elevations or depressions. 3. Tremors: These do not appear to be from withdrawal. Ativan may still help. However, patient will need to see a neurologist not emergently. No further ER workup today. Lab Data 04/08/24 09:40 04/08/24 09:40 Radiology Impressions Chest X-Ray 04/08/24 10:19 IMPRESSION: No acute findings. Laboratory Results WBC 7.17 10^3/uL (3.29-11.43) 04/08/24 09:40 RBC 5.72 10^6/uL (3.85-5.65) H 04/08/24 09:40 Hgb 16.70 g/dL (11.27-16.99) 04/08/24 09:40 Hct 51.0 % (37-53) 04/08/24 09:40 MCV 89.2 fl (82-101) 04/08/24 09:40 MCH 29.2 pg (27-33) 04/08/24 09:40 MCHC 32.7 g/dL (30-55) 04/08/24 09:40 RDW 12.6 % (12.1-15.1) 04/08/24 09:40 Plt Count 290 10^3/cmm (157-399) 04/08/24 09:40 MPV 9.2 fL (7.4-10.4) 04/08/24 09:40 Neut % (Auto) 61.8 % 04/08/24 09:40 Lymph % (Auto) 28.5 % 04/08/24 09:40 Josephine % (Auto) 6.1 % 04/08/24 09:40 Eos % (Auto) 2.2 % 04/08/24 09:40 Baso % (Auto) 0.8 % 04/08/24 09:40 Neut # (Auto) 4.43 10^3/uL (1.8-7.7) 04/08/24 09:40 Lymph # (Auto) 2.0 10^3/uL (0.8-4.8) 04/08/24 09:40 Josephine # (Auto) 0.4 10^3/uL (0.2-0.9) 04/08/24 09:40 Eos # (Auto) 0.2 10^3/uL (0.0-0.8) 04/08/24 09:40 Baso # (Auto) 0.1 10^3/uL (0.0-0.1) 04/08/24 09:40 Nucleated RBC % (auto) 0 % 04/08/24 09:40 Nucleated RBCs # 0.0 /100WBC 04/08/24 09:40 Sodium 137 mmol/L (136-145) 04/08/24 09:40 Potassium 4.2 mmol/L (3.5-5.1) 04/08/24 09:40 Chloride 101 mmol/L (98-107) 04/08/24 09:40 Carbon Dioxide 29 mmol/L (22-29) 04/08/24 09:40 Anion Gap 11.2 (5-19) 04/08/24 09:40 BUN 17 mg/dL (8-23) 04/08/24 09:40 Creatinine 0.9 mg/dL (0.7-1.2) 04/08/24 09:40 GFR Calculation 85.0 mL/min (90-130) L 04/08/24 09:40 Glucose 84 mg/dL (65-115) 04/08/24 09:40 Calculated Osmolality 285 mOsm/kg (285-295) 04/08/24 09:40 Calcium 9.7 mg/dL (8.5-10.5) 04/08/24 09:40 Magnesium 1.8 mg/dL (1.7-2.3) 04/08/24 09:40 Total Bilirubin 0.5 mg/dL (0.15-1.2) 04/08/24 09:40 AST 13 U/L (0-40) 04/08/24 09:40 ALT 12 U/L (0-41) 04/08/24 09:40 Alkaline Phosphatase 80 U/L (40-130) 04/08/24 09:40 Troponin T Baseline < 6 ng/L (0-15) 04/08/24 09:40 Troponin T 120 Minute 6.00 ng/L (0-15) 04/08/24 11:35 Delta Troponin T [id number] ABS# (0-10) 04/08/24 11:35 Total Protein 6.4 g/dL (6.6-8.7) L 04/08/24 09:40 Albumin 4.3 g/dL (3.5-5.2) 04/08/24 09:40 Globulin 2.1 g/dL (1.3-4.6) 04/08/24 09:40 All radiology interpretation(s) finalized by discharge ED provider radiology interpretation(s): Chest x-ray 1 view. EP interpretation. No acute findings. Normal cardiomediastinal silhouette. No pneumothorax. No focal infiltrates. No effusions. Discharge Plan Discharge Patient Disposition: Home Clinical Impression: Atypical chest pain, Coarse tremors Condition: Stable Prescriptions: New propranolol 60 mg capsule,extended release 24 hr 60 mg PO DAILY Qty: 30 0RF amlodipine 5 mg tablet 5 mg PO .daily prn PRN (Reason: PRN SBP>140 or DBP >90 despite propranolol ) 30 Days Qty: 30 0RF Discontinued lisinopril 20 mg tablet 20 mg PO DAILY No Action lorazepam [Ativan] 2 mg tablet 2 mg PO Q8H PRN (Reason: anxiety) Qty: 14 0RF Discharge Orders: Discharge ED (Routine); Ordered 04/08/24 Ordered By: Faheem Moss Referrals: Jasen Mcfarlane MD [Primary Care Provider] - Patient Instructions: Opioid Safety, Pain Management Activity Restrictions/Additional Instructions: 1. There are no signs of heart attack, heart failure, or other life threats at this time. We suspect this is chest wall discomfort. 2. You have tremors. This will need to be officially worked up by neurology. A referral has been sent for you and they should be reaching out to you to schedule a follow-up appointment. 3. You do not want to take your lisinopril. Propranolol has been added as a daily medication to help with both blood pressure and tremors. If you are still having elevated blood pressure despite taking the propranolol, you may add amlodipine 5 mg daily as needed for systolic blood pressure greater than 140 or diastolic blood pressure greater than 90. 4. Please make a follow-up appointment with primary care. It is up to you who you want to use but [facility] can be reached at [phone] Coding Level of Care Code ED Log Tumbler for Edward Berkowitz
[2024-04-08] MEDS: propranolol 20 mg Tablet PO (10:42)
[2024-04-08 10:43] VITALS: BP 163/73; PULSE 64; O2SAT 98
[2024-04-08 10:49] LABS: Alanine Aminotransferase 12 U/L (0-41); Albumin Level 4.3 g/dL (3.5-5.2); Alkaline Phosphatase 80 U/L (40-130); Aspartate Amino Transferase 13 U/L (0-40); Blood Urea Nitrogen 17 mg/dL (8-23); Calcium 9.7 mg/dL (8.5-10.5); Carbon Dioxide 29 mmol/L (22-29); Chloride 101 mmol/L (98-107); Creatinine Clr Calc Pharmacy 85.9274; Globulin 2.1 g/dL (1.3-4.6); Glucose 84 mg/dL (65-115); Magnesium 1.8 mg/dL (1.7-2.3); Osmolality Calculated 285 mOsm/kg (285-295); Sodium 137 mmol/L (136-145); Total Bilirubin 0.5 mg/dL (0.15-1.2); Total Protein 6.4 g/dL (6.6-8.7); Troponin(5th) Baseline < 6 ng/L (0-15)
[2024-04-08 10:51] LABS: Anion Gap 11.2 (5-19); Potassium 4.2 mmol/L (3.5-5.1)
[2024-04-08 11:00] VITALS: BP 136/78; PULSE 54; O2SAT 98
--- NOTE | 2024-04-08 11:00 | ECG_ITS ---
[facility]: 2024-[facility]-08 Pat Name: Austin Morrissey Department: Room: Gender: Male Embedded Software Programmer: : 1960 Requested By: Mary Ann Pérez Order Number: [id number] Gracie MD: Jose Shaver M.D. Measurements Intervals [place] Rate: 59 P: 57 VA: 133 QRS: 51 QRSD: 92 T: 77 QT: 380 QTc: 379 Interpretive Statements SINUS BRADYCARDIA Compared to ECG 04/06/2024 11:27:55 Sinus rhythm no longer present Electronically Signed On 04-08-2024 18:59:57 CONTROL SYSTEMS DEVELOPER by Jose Shaver M.D. [id number]
[2024-04-08 12:03] LABS: Troponin 5 2HR Delta 0.00001 ABS# (0-10)
[2024-04-08 12:21] VITALS: BP 157/84; PULSE 58; O2SAT 100
[2024-04-08 12:32] VITALS: BP 157/84; PULSE 56; O2SAT 100
--- NOTE | 2024-04-09 07:22 | DCPLANNER ---
messaged neuro for er f/u
== END 2024-04-08 12:34 | disposition home or self-care (01) ==
PROVIDERS: Emergency Provider Emergency Medicine; PCP Surgery
DX: R07.89 Other chest pain (principal); G25.2 Other specified forms of tremor
CPT/HCPCS: 36415; 71045; 80053; 83735; 84484; 85025; 93005; 99285

== ENCOUNTER 2024-10-30 11:17 | Emergency (ER) | payer MEDICARE, OTHER, SELFPAY ==
[2024-10-30] VITALS (7 sets, daily range): BP systolic 117–153; BP diastolic 60–85; PULSE 80–113; RESP 16–26; TEMP 36.5; O2SAT 88–96
--- NOTE | 2024-10-30 11:30 | XR_ITS ---
WS: [id number] Exam: XR chest 1V portable [id number] Date/Time of Exam: 10/30/2024 11:31 AM Reason For Exam: sob Comparison 04/08/2024. Lungs are fully inflated and clear. Normal cardiomediastinal silhouette. No pleural effusions. Bony structures are intact. XR/XR chest 1V portable [id number] IMPRESSION: 1. No acute cardiopulmonary finding.
--- NOTE | 2024-10-30 11:31 | ECG_ITS ---
[facility]24[facility]30 Pat Name: Austin Morrissey Department: Room: Gender: Male Charge Hand: : 1960 Requested By: Raheem Nolasco Order Number: [id number] Gracie MD: Jose Shaver M.D. Measurements Intervals Russell Rate: 105 P: 64 IL: 119 QRS: 65 QRSD: 82 T: 77 QT: 329 QTc: 435 Interpretive Statements SINUS TACHYCARDIA WITH SHORT IL INTERVAL Compared to ECG 04/08/2024 11:00:12 Short IL interval now present Sinus bradycardia no longer present Electronically Signed On 10-30-2024 17:10:46 CDT by Jose Shaver M.D. [email or web address]
--- NOTE | 2024-10-30 11:31 | ED_ITS ---
HPI - SOB/Dyspnea 2 General: Chief Complaint: Shortness of Breath/Dyspnea Stated Complaint: trouble breathing Time Seen by Provider: 10/30/24 11:25 Source: patient Mode of arrival: ambulatory Limitations: no limitations History of Present Illness: HPI Narrative: 64-year-old male is a chronic smoker sta waqas he been having cough wheezing over the last 2 weeks states he had went to urgent care and been on antibiotics and steroids but has had no improvement. He states that he has had nonproductive cough increased wheezing does feel like he cannot breathe he states has been having some sharp pains but mainly when he coughs. He does not wear oxygen at home. Associated symptoms: Deny abdominal pain, chest pain, fever(s), nausea or vomiting Related Data Previous Rx's ?Medication ?Instructions ?Recorded azithromycin 250 mg tablet See Rx Instructions PO .COM PLEX #6 10/22/24 tabs ipratropium 20 mcg-albuterol 100 2 puff inhalation Q6H PRN 10/22/24 mcg/actuation mist for inhalation shortness of breath or wheezing #4 (Combivent Respimat) grams prednisone 20 mg tablet 40 mg (2 x 20 mg) PO DAILY 0 10/22/24 wheezing #14 tabs albuterol sulfate 2.5 mg/3 mL 2.5 mg (3 mL) inhalation Q4H PRN 10/30/24 (0.083 %) solution for nebulization shortness of breat h or wheezing #90 mL albuterol sulfate 90 mcg/actuation 2 inh inhalation Q6 H PRN shortness 10/30/24 aerosol inhaler of breath or wheezing #8 gra ms cephalexin 500 mg capsule 500 mg PO TID 7 days #21 cap s 10/30/24 prednisone 50 mg tablet 50 mg PO DAILY #5 tabs 10/30 Allergies Allergy/AdvReac Type Severity Reaction Status Date / Time No Known Allergies Allergy Verified 10/22/24 07:10 Review of Systems 2 Const: Denies: fever(s), chills, body aches or change in appetite ENMT: Denies: throat pain or dental pain Card: Denies: chest pain Resp: Reports: dyspnea, non-productive cough and wheezing GI: Denies: abdominal pain, nausea, vomiting or diarrhea Musc: Denies: neck pain or back pain Skin/Breast: Denies: rash Neuro: Denies: headache(s) PFSH ED 2 PFSH: Medical History COPD with acute exacerbation Surgical History History of left inguinal hernia repair 03/23/23 lap converted to open left inguinal hernia repair with mesh- Dr Mcfarlane Family History Denies family history of Anesthesia complication Social History Smoking and tobacco/nicotine status: current every day tobacco/nicotine user Alcohol intake: never Physical Exam 2 Const: COMMON NORMALS: patient oriented x3 HENMT: COMMON NORMALS: normocephalic and atraumatic HEAD & SCALP: n ormocephalic and atraumatic Eye: COMMON NORMALS: Equal, round and reactive pupils present and EOMs intact bilaterally PUPIL: Yes Equal, round and reactive pupils present Neck/C-Spine: COMMON NORMALS: full ROM and supple Chest: COMMONS NORMALS: normal inspection of the chest Resp: EFFORT & INSPECTION: Yes tachypneic and Yes respiratory distress A USCULTATION: wheezes Cardio: COMMON NORMALS: regular rate, regular rhythm and No murmurs present (Cardio) RATE: regular rate RHYTHM: regular rhythm GI: COMMON NORMALS: Normal to inspection, nondistended, normoactive bowel sounds present, Soft to palpation, non-tender and no masses PALPATION: Yes Soft to palpation Extremity: COMMON NORMALS: normal to inspection and full ROM Neuro: COMMON NORMALS: patient oriented x3, moves all extremities and no focal motor deficits Psych: COMMON NORMALS: mental status grossly normal, Normal thought process present and cooperative THOUGHT PROCESS: Normal thought process present Skin: COMMON NORMALS: no rashes or lesions noted and no wounds GENERAL SKIN EXAM: no rashes or lesions noted Course 2 Vital Signs: Vital signs: Vital Signs Temperature 97.7 F 10/30/24 11:34 Pulse Rate 94 10/30/24 12:10 Respiratory Rate 22 H 10/30/24 11:58 Blood Pressure 118/67 10/30/24 12:05 Pulse Oximetry 96 10/30/24 12:05 Oxygen Delivery Me thod Room Air 10/30/24 12:05 MDM - SOB/Dyspnea Medical Decision Making Patient presents for acute bronchitis he feels much improved after breathing treatment steroids he is 96% currently on room air and lung sounds are much improved he never did take his steroids from before we will prescribe him prednisone along with albuterol and Keflex he is to follow-up with his PCP and return if worsening he understands agrees to plan. Medical Records I reviewed the patient's medical records. Lab Data I reviewed the patient's lab results. 10/30/24 11:39 10/30/24 11:39 Labs/Radiology: Radiology Impressions Chest X-Ray 10/30/24 11:30 IMPRESSION: 1. No acute cardiopulmonary finding. Laboratory Results WBC 12.84 10^3/uL (3.29-11.43) H 10/30/24 11:39 RBC 5.50 10^6/uL (3.85-5.65) 10/30/24 11:39 Hgb 15.40 g/dL (11.27-16.99) 10/30/24 11:39 Hct 48.1 % (37-53) 10/30/24 11:39 MCV 87.5 fl (82-101) 10/30/24 11:39 MCH 28.0 pg (27-33) 10/30/24 11:39 MCHC 32.0 g/dL (30-55) 10/30/24 11:39 RDW 13.0 % (12.1-15.1) 10/30/24 11:39 Plt Count 759 10^3/cmm (157-399) H 10/30/24 11:39 MPV 8.7 fL (7.4-10.4) 10/30/24 11:39 Neut % (Auto) 72.3 % 10/30/24 11:39 Lymph % (Auto) 18.7 % 10/30/24 11:39 [place] % (Auto) 5.5 % 10/30/24 11:39 Eos % (Auto) 1.6 % 10/30/24 11:39 Baso % (Auto) 0.7 % 10/30/24 11:39 Neut # (Auto) 9.29 10^3/uL (1.8-7.7) H 10/30/24 11:39 Lymph # (Auto) 2.4 10^3/uL (0.8-4.8) 10/30/24 11:39 [place] # (Auto) 0.7 10^3/uL (0.2-0.9) 10/30/24 11:39 Eos # (Auto) 0.2 10^3/uL (0.0-0.8) 10/30/24 11:39 Baso # (Auto) 0.1 10^3/uL (0.0-0.1) 10/30/24 11:39 Nucleated RBC % (auto) 0 % 10/30/24 11:39 Nucleated RBCs # 0.0 /100WBC 10/30/24 11:39 Sodium 140 mmol/L (136-145) 10/30/24 11:39 Potassium 5.0 mmol/L (3.5-5.1) 10/30/24 11:39 Chloride 102 mmol/L (98-107) 10/30/24 11:39 Carbon Dioxide 25 mmol/L (22-29) 10/30/24 11:39 Anion Gap 18.0 (5-19) 10/30/24 11:39 BUN 17 mg/dL (8-23) 10/30/24 11:39 Creatinine 1.0 mg/dL (0.7-1.2) 10/30/24 11:39 GFR Calculation 75.0 mL/min (90-130) L 10/30/24 11:39 Glucose 89 mg/dL (65-115) 10/30/24 11:39 Calculated Osmolality 291 mOsm/kg (285-295) 10/30/24 11:39 Calcium 10.0 mg/dL (8.5-10.5) 10/30/24 11:39 Total Bilirubin 0.3 mg/dL (0.15-1.2) 10/30/24 11:39 AST 14 U/L (0-40) 10/30/24 11:39 ALT 18 U/L (0-41) 10/30/24 11:39 Alkaline Phosphatase 124 U/L (40-130) 10/30/24 11:39 Troponin T Baseline 11 ng/L (0-15) 10/30/24 11:39 NT-Pro-B Natriuret Pep 71 pg/mL (0-125) 10/30/24 11:39 Total Protein 7.1 g/dL (6.6-8.7) 10/30/24 11:39 Albumin 3.7 g/dL (3.5-5.2) 10/30/24 11:39 Globulin 3.4 g/dL (1.3-4.6) 10/30/24 11:39 Influenza A (PCR) Negative (Negative) 10/30/24 12:10 Influenza Type B (PCR) Negative (Negative) 10/30/24 12:10 RSV (PCR) Negative (Negative) 10/30/24 12:10 SARS-CoV-2 (PCR) Negative (Negative) 10/30/24 12:10 All radiology interpretation(s) finalized by discharge EKG Data EKG 1: I personally reviewed and interpreted this EKG as follows: EKG Interpretation Date: 10/30/24 EKG interpretation time: 11:31 Interpretation: sinus tach hr [address] elevation qrs 82 qtc 390 Discharge Plan Discharge Patient Disposition: Home Clinical Impression: Bronchitis Condition: Stable Prescriptions: New albuterol sulfate 2.5 mg /3 mL (0.083 %) solution for nebulization 2.5 mg INHALATION Q4H PRN (Reason: shortness of breath or wheezing) Qty: 90 0RF cephalexin 500 mg capsule 500 mg PO TID 7 Days Qty: 21 0RF prednisone 50 mg tablet 50 mg PO DAILY Qty: 5 0RF albuterol sulfate 90 mcg/actuation HFA aerosol inhaler 2 inh INHALATION Q6H PRN (Reason: shortness of breath or wheezing) Qty: 8 0RF No Action azithromycin 250 mg tablet See Rx Instructions PO .COMPLEX Qty: 6 0RF Rx Instructions: For 250 mg dose pack: take 500 mg today (day 1), then 250 mg for 4 days (days 2-5) PO prednisone 20 mg tablet 40 mg PO DAILY Qty: 14 0RF Combivent Respimat 20-100 mcg/actuation mist 2 puff inhalation Q6H PRN (Reason: shortness of breath or wheezing) Qty: 4 0RF Discharge Orders: Discharge ED (Routine); Ordered 10/30/24 Ordered By: Raheem Nolasco Referrals: Jasen Mcfarlane MD [Primary Care Provider, General Surgery] Discharge Diet: Advance as tolerated Discharge Activity: Resume usual activity Patient Instructions: Acute Bronchitis (ED) Print Language: Romansh Coding Level of Care Code ED Dock [facility] Laborer for Edward Berkowitz
[2024-10-30 11:47] LABS: Basophils # 0.1 10^3/uL (0.0-0.1); Basophils % 0.7 %; Eosinophils # 0.2 10^3/uL (0.0-0.8); Eosinophils % 1.6 %; Hematocrit 48.1 % (37-53); Lymphocytes # 2.4 10^3/uL (0.8-4.8); Lymphocytes % 18.7 %; Mean Corpuscular Volume 87.5 fl (82-101); Mean Platelet Volume 8.7 fL (7.4-10.4); Monocytes # 0.7 10^3/uL (0.2-0.9); Monocytes % 5.5 %; Neutrophils # 9.29 10^3/uL (1.8-7.7); Neutrophils % 72.3 %; Nucleated Red Blood Cells % 0 %; Platelet Count 759 10^3/cmm (157-399); White Blood Count 12.84 10^3/uL (3.29-11.43)
[2024-10-30] MEDS: ipratropium-albuterol 3 mL Neb INHALATION (11:56)
[2024-10-30] MEDS: albuterol 2.5 mg/3 mL Neb INHALATION (11:56)
[2024-10-30 12:13] LABS: Troponin(5th) Baseline 11 ng/L (0-15)
[2024-10-30 12:34] LABS: Alanine Aminotransferase 18 U/L (0-41); Albumin Level 3.7 g/dL (3.5-5.2); Alkaline Phosphatase 124 U/L (40-130); Aspartate Amino Transferase 14 U/L (0-40); Blood Urea Nitrogen 17 mg/dL (8-23); Carbon Dioxide 25 mmol/L (22-29); Chloride 102 mmol/L (98-107); Creatinine Clr Calc Pharmacy 76.3171; Globulin 3.4 g/dL (1.3-4.6); Glucose 89 mg/dL (65-115); NT Pro B Type Natriuretic Pept 71 pg/mL (0-125); Osmolality Calculated 291 mOsm/kg (285-295); Sodium 140 mmol/L (136-145); Total Bilirubin 0.3 mg/dL (0.15-1.2); Total Protein 7.1 g/dL (6.6-8.7)
[2024-10-30 12:52] LABS: Influenza A NEGATIVE (Negative); Influenza B NEGATIVE (Negative); Respiratory Syncytial Virus Ce NEGATIVE (Negative); SARS-CoV-2 PCR NEGATIVE (Negative)
[2024-10-30] MEDS: methylPREDNISolone sod succ 125 mg/2 mL INJ IV (13:03)
[2024-10-30] MEDS: cefTRIAXone 1,000 mg SDV 1000 MG IVP (13:08)
[2024-10-30] MEDS: AZITHROMYCIN ADD-Vantage 500 MG in 0.9% NaCl ADD-Vantage 250 ML 250 MG IV (13:08)
[2024-10-30] MEDS: albuterol 8 gm MDI 2 PUFF INHALATION (13:20)
== END 2024-10-30 14:35 | disposition home or self-care (01) ==
PROVIDERS: Emergency Provider Emergency Medicine; PCP Surgery
DX: J40 Bronchitis, not specified as acute or chronic (principal); Z11.52 Encounter for screening for COVID-19; Z72.0 Tobacco use; J44.9 Chronic obstructive pulmonary disease, unspecified
CPT/HCPCS: 36415; 71045; 80053; 83880; 84484; 85025; 87040; 87637; 93005; 94640; 96374; 96375; 99283; 99285; J0456; J0696; J2919; J3535; J7050; J7613; J9999